=== PATIENT | male | born 1980 | race Caucasian/White ===

== ENCOUNTER 2019-10-11 21:40 | Outpatient (CLI) | payer OTHER ==
[2019-10-11 22:14] LABS: Potassium 4.3 mmol/L (3.5-5.1)
== END 2019-10-11 21:41 | disposition home or self-care (01) ==
LOC: EDBD 21:40 → NAV LABSP 21:40
PROVIDERS: ATTEND Nurse Practitioner Adult Health
DX: I10 Essential (primary) hypertension (principal)
CPT/HCPCS: 84132